=== PATIENT | male | born 1995 | race American Indian/Alaskan Native ===

== ENCOUNTER 2019-03-07 19:43 | Emergency (ER) | payer OTHER ==
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
[2019-03-07 20:28] VITALS: BP 129/74
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
[2019-03-07] MEDS ORDERED: TYLENOL PO ONE (21:51)
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
== END 2019-03-07 22:46 | disposition home or self-care (01) ==
LOC: ED 19:43
DX: M62.830 Muscle spasm of back (principal); E11.9 Type 2 diabetes mellitus without complications; Z79.899 Other long term (current) drug therapy; Z88.6 Allergy status to analgesic agent; V89.2XXA Person injured in unspecified motor-vehicle accident, traffic, initial encounter; Y93.89 Activity, other specified; Y92.488 Other paved roadways as the place of occurrence of the external cause; Y99.8 Other external cause status
CPT/HCPCS: 72100; 99283